=== PATIENT | female | born 1975 | race Two or more races ===

== ENCOUNTER 2024-07-26 13:24 | Emergency (ER) | payer MEDICAID, SELFPAY ==
[2024-07-26] VITALS (7 sets, daily range): BP systolic 88–140; BP diastolic 58–85; PULSE 76–101; RESP 16–19; TEMP 36.6–36.9; O2SAT 96–100
--- NOTE | 2024-07-26 13:41 | XR_ITS ---
Examination: CT abdomen and pelvis without contrast. Coronal 3-D reconstructions. Sagittal 2-D reconstructions. Date and time of exam:July 26, 2024 1450 hours INDICATIONS: Sudden onset abdominal pain and vomiting today COMPARISON: December 31, 2023 CTDI: vol (mGy): 6.98 DLP: (mGycm): 8 Technique: Axial images of the abdomen have been obtained, 3 mm slice thickness Intravenous contrast material has not been administered. Low dose protocols were performed. One or more of the following dose reduction techniques were used; automated exposure control, adjustment of the mA and/or KV according to patient size, use of iterative reconstruction technique. Findings: Diffuse fatty infiltration throughout the liver Absent gallbladder Spleen not enlarged No pancreatic or adrenal mass No renal or ureteral calculi, no hydronephrosis Normal appendix No bowel obstruction No diverticulitis 16mm left pelvic cyst Contracted urinary bladder with air in the urinary bladder Moderate osteopenia IMPRESSION: Diffuse fatty infiltration throughout the liver No renal or ureteral calculi, no hydronephrosis Normal appendix No bowel obstruction Recommend pelvic sonography to assess 16mm left pelvic cyst
--- NOTE | 2024-07-26 13:45 | PC.NURSE ---
pt here with c/o abd pain and generalized body aches since yesterday, Dr. Abarca in to see pt
--- NOTE | 2024-07-26 13:49 | PD.EDABDPN ---
ED Abdominal Pain RME/HPI General Chief Complaint: Abdominal Pain Stated complaint: ABD PAIN AND BODY PAIN SINCE YESTRDAY Time seen by provider: 07/26/24 13:30 Arrival date/time: 07/26/24 13:24 RME / HPI RME / HPI narrative: 49 year old female with history of hypertension., diabetes, and previous admission for DKA presents to the ED for evaluation of epigastric abdominal pain that radiates to both shoulders beginning yesterday. Described as aching in sensation, rating as moderate. Accompanied by nausea, vomiting, and body aches. Reports pain is aggravated with eating with no known modifying factors. Denies fevers, chills, chest pain, cough, shortness of breath, diarrhea, constipation, or urinary symptoms. Denies any sick contacts with similar GI symptoms. Related Data Home Medications ?Medication ?Instructions ?Recorded ?Confirmed lisinopril 2.5 mg tablet 2.5 mg PO QDAY 01/02/24 01/29/24 ascorbic acid (vitamin C) 500 mg 500 mg PO DAILY 01/29/24 01/29/24 tablet (Vitamin C) bisacodyl 10 mg rectal suppository 10 mg DE Q72H PRN Constipation 01/29/24 01/29/24 (Dulcolax (bisacodyl)) hydrocodone 5 mg-acetaminophen 325 1 tab PO Q6H PRN Breakthrough 01/29/24 01/29/24 mg tablet Pain, Moderate insulin glargine 100 unit/mL (3 25 unit subcut QDAY 01/29/24 01/29/24 mL) subcutaneous pen (Basaglar KwikPen U-100 Insulin) insulin lispro 100 unit/mL See Rx Instructions .Route .COMPLEX 01/29/24 01/29/24 subcutaneous pen (Admelog SoloStar U-100 Insulin lispro) magnesium hydroxide 400 mg/5 mL 30 ml PO Q72H PRN Constipation 01/29/24 01/29/24 oral suspension (Milk of Magnesia) vancomycin 1 gram/200 mL in 0.9 % 1 g IV BID 01/29/24 01/29/24 sod. chloride intravenous piggyback zinc 50 mg tablet 50 mg PO QDAY 01/29/24 01/29/24 Previous Rx's ?Medication ?Instructions ?Recorded insulin lispro 100 unit/mL See Rx Instructions .Route 01/10/20 subcutaneous pen .COMPLEX #15 mL pantoprazole 40 mg tablet,delayed 40 mg PO QDAY #60 tabs 06/24/23 release Allergies Allergy/AdvReac Type Severity Reaction Status Date / Time No Known Allergies Allergy Verified 07/26/24 13:28 Review of Systems Review of Systems Narrative Review of Systems: Gen: No fever, no chills, no weight loss, +body aches EYES: No discharge, no visual changes, no pain HEENT: No ear pain, no congestion, no sore throat PULM: No shortness of breath, no cough, no congestion CV: No chest pain, no dyspnea on exertion, no palpitations GI: +nausea, +vomiting, no diarrhea,+ pain, no constipation : No frequency, no urgency,? no dysuria Musc/skel: No joint pain, +BL shoulder pain Skin: No rash. Neuro: No weakness, no headache Past Medical History Past Medical History CARDIAC: Positive Hypertension GASTROINTESTINAL: Positive Gastrointestinal Disorders and Gastroesophageal Reflux Disease MUSCULOSKELETAL: Positive Musculoskeletal Disorders and Arthritis ENDOCRINE: Positive Endocrine Disorders and Diabetes Mellitus Type 2 HEMATOLOGIC: Positive Blood Disorders and Anemia OTHER HISTORY: Positive Chicken Pox Family History FAMILY HISTORY: Negative Family Psychiatric Problems, Family Respiratory Disorders, Family Cardiac Disorders or Family Gastrointestinal Problems Surgical History SURGICAL: Positive Abdominal Surgery and Hysterectomy Social History SMOKING STATUS: Never smoker SUBSTANCE USE: does not use and unknown ED Exam Narrative Physical exam: GENERAL: In general the patient is awake, interactive, in an emergency department gurney.? HEAD/EYES/EARS/NOSE/THROAT: normo-cephalic, atraumatic, mucus membranes are moist.? No cervical tenderness palpation midline.? Supple neck. CARDIOVASCULAR: regular rate and regular rhythm, no murmurs, heart sounds are not distant, strong pulses in all four extremities that are equal and symmetric bilateral upper and lower extremities, normal capillary refill. CHEST/PULMONARY: normal chest rise and fall, good air movement, clear to auscultation bilaterally, normal inspiratory to expiratory ratios without evidence of respiratory distress. ABDOMEN: soft, epigastric tenderness, no masses appreciated BACK: normal range of motion without pain. NEUROLOGICAL: cranio-facial features are symmetric, moves all four extremities equally without obvious limitations or weakness. EXTREMITY: no tenderness to palpation over the long bones or large joints of the bilateral upper and lower extremities, no joint swelling, no joint erythema, no signs of trauma, no unilateral leg swelling and no peripheral edema. SKIN: warm, dry, well-perfused, no jaundice, no rash, no telangiectasias or petechia. PSYCH: calm, cooperative, no evidence of psychosis or agitation Course Quality Measures none Orders Category Date Time Status EKG (ED ONLY) *Do not use* NOW Care 07/26/24 16:50 Completed Miscellaneous Nursing Order X1 Care 07/26/24 16:[address] abdomen pelvis wo con Stat Exams 07/26/24 13:41 Completed EKG (ED Only) Stat Exams 07/26/24 16:50 Draft CBC Stat Lab 07/26/24 13:55 Completed CMP [Comprehensive Metabolic Panel] Stat Lab 07/26/24 13:55 Completed HCG Qualitative,Urine Stat Lab 07/26/24 13:41 Ordered Lipase Stat Lab 07/26/24 13:55 Completed Troponin I Stat Lab 07/26/24 16:35 Ordered UA [Urinalysis] Stat Lab 07/26/24 13:41 Ordered Urine Culture Stat Lab 07/26/24 13:41 Ordered Lidocaine 2% Viscous [Xylocaine 2% Viscous] Med 07/26/24 16:31 Discontinued 15 ml PO X1 ONE Morphine Inj Med 07/26/24 16:37 Discontinued 4 mg IVP X1 ONE Ondansetron Inj [Zofran Inj] Med 07/26/24 16:37 Discontinued 4 mg IV X1 ONE Ondansetron Inj [Zofran Inj] Med 07/26/24 16:49 Discontinued 4 mg IV X1 ONE Ondansetron Odt [Zofran Odt] Med 07/26/24 13:41 Discontinued 4 mg PO X1 ONE Sodium Chloride 0.9% 1000 ml [Ns] 1,000 ml Med 07/26/24 16:36 Discontinued IV 999 mls/hr mg Hyd/Al Hyd/Zamzam Susp [Maalox Susp] Med 07/26/24 13:41 Discontinued 30 ml PO X1 ONE mg Hyd/Al Hyd/Zamzam Susp [Maalox Susp] Med 07/26/24 16:31 Discontinued 30 ml PO X1 ONE Reevaluation(s) Reevaluation #1: Patient is still complaining of nausea and pain. Will add on labs and GB ultrasound. Time: 16:35 Vital Signs Vital signs: Vital Signs Temperature 98.5 F 07/26/24 13:36 Pulse Rate 100 07/26/24 13:36 Respiratory Rate 18 03/17/25 13:36 Blood Pressure 88/62 L 07/26/24 13:36 Pulse Oximetry (%) 96 07/26/24 13:36 Oxygen Delivery Method Room Air 07/26/24 13:36 Pulse ox is 96% on room air which is adequate. Abdominal Pain MDM MDM Narrative MDM Narrative:: Teresa Bhtaia, am scribing for and in the presence of Dr. Cotton. 49-year-old female with history of diabetes, gastritis, hypertension, status post cholecystectomy in the past who is coming into the emergency department for mid to epigastric abdominal pain that has been constant since yesterday. The patient's had decreased oral intake. She denies fevers, cough, or radiation to her back. No chest pain or shortness of breath. Patient states she has had pain similar to this in the past after she has been eating spicy foods. No dizziness or syncope. Positive nausea. While in the emergency department it is noted on arrival that she is 88/62 and immediately placed into a bed. Pulse is 100 and afebrile at 98.5. LABS: Labs reviewed and interpreted by me. White count is normal at 6.2. H&H is stable at 11/33. Platelets normal at 223. Liver function test show bilirubin at 1.5 which is increased and abnormal from her previous at 0.6. Alk phos is 181(slightly increased from 177). Lipase is normal at 26. CT abdomen pelvis without contrast: No acute abdomen and fatty liver. EDC: Patient treated with GI cocktail and not improved in her pain. Differential diagnosis includes, bile duct stone, worsening gastritis, non-STEMI, other coronary artery disease, pancreatitis. There is no evidence of DKA and her CO2 is 25. Anion gap is 11. I do not believe that this patient is anything close to DKA. Glucose slightly elevated at 266. 1700: CT scan also shows that she has a very small ovarian cyst and she is not having any bilateral lower abdominal cramping or pain so I do not think she needs a pelvic ultrasound today. -Pain control patient will be treated with morphine and/or Toradol -Gallbladder ultrasound to look for enlarged common bile duct -IV fluids to treat for dehydration since the patient has not eaten since yesterday. -Repeat [id number] glucose after 1 L of fluid. -Follow-up labs urinalysis. 1800: Patient signed out to Dr. Almazan pending troponin, UA, GB ultrasound, and pain control. Patient data External records reviewed:: [facility] previous records (I reviewed admission from 01/29/2024 through 02/03/2024) Clinical information provided by:: patient Social determinants that could affect healthcare access:: none Patient has the following chronic illnesses:: HTN, DM, previous admission for DKA How is presenting disease/condition affected by chronic disease/condition?: exacerbated by Evaluation data The following diagnostics were reviewed and interpreted by me:: lab results, radiology exam(s) and EKG tracing(s) (Sinus rhythm, rate 84, no ST elevation or depression, no STEMI, normal DE interval. ) Lab and/or radiology exams considered but not ordered:: None Interpretation Summary: Ordering Physician: Fredis Hewitt Date of Service: 07/26/24 Procedure(s): CT abdomen pelvis wo con Accession Number(s): [id number] cc: Fredis Hewitt; Karl Rodríguez MD~ Examination: CT abdomen and pelvis without contrast. Coronal 3-D reconstructions. Sagittal 2-D reconstructions. Date and time of exam:July 26, 2024 1450 hours INDICATIONS: Sudden onset abdominal pain and vomiting today COMPARISON: December 31, 2023 CTDI: vol (mGy): 6.98 DLP: (mGycm): 8 Technique: Axial images of the abdomen have been obtained, 3 mm slice thickness Intravenous contrast material has not been administered. Low dose protocols were performed. One or more of the following dose reduction techniques were used; automated exposure control, adjustment of the mA and/or KV according to patient size, use of iterative reconstruction technique. Findings: Diffuse fatty infiltration throughout the liver Absent gallbladder Spleen not enlarged No pancreatic or adrenal mass No renal or ureteral calculi, no hydronephrosis Normal appendix No bowel obstruction No diverticulitis 16mm left pelvic cyst Contracted urinary bladder with air in the urinary bladder Moderate osteopenia IMPRESSION: Diffuse fatty infiltration throughout the liver No renal or ureteral calculi, no hydronephrosis Normal appendix No bowel obstruction Recommend pelvic sonography to assess 16mm left pelvic cyst Dictated By: Karl Rodríguez MD Signed By: <Electronically signed by Karl Rodríguez MD in OV> 07/26/24 1534 Medications / Prescriptions Medications or Prescriptions considered but not ordered:: None Medication administrations:: Medication Administration History Discontinued Medications Al Hydrox/Mg Hydrox/Simethicone (Mg Hyd/Al Hyd/Zamzam (Maalox Reg) Susp 30 Ml Udc) 30 ml PO X1 ONE Stop: 07/26/24 13:42 Last Admin: 07/26/24 14:44 Dose: 30 ml Documented By: [facility] Al Hydrox/Mg Hydrox/Simethicone (Mg Hyd/Al Hyd/Zamzam (Maalox Reg) Susp 30 Ml Udc) 30 ml PO X1 ONE Stop: 07/26/24 16:32 Last Admin: 07/26/24 16:51 Dose: Not Given Documented By: [facility] Non-Admin Reason: Cancelled by Provider Sodium Chloride (Ns) 1,000 mls @ 999 mls/hr IV .Q1H1M ONE Stop: 07/26/24 17:36 Last Admin: 07/26/24 17:00 Dose: 999 mls/hr Documented By: [facility] Lidocaine HCl (Lidocaine Viscous 2% 15 Ml Udc) 15 ml PO X1 ONE Stop: 07/26/24 16:32 Last Admin: 07/26/24 16:51 Dose: Not Given Documented By: [facility] Non-Admin Reason: Cancelled by Provider Morphine Sulfate (Morphine Sulf Inj 10 Mg/Ml Vial) 4 mg IVP X1 ONE Stop: 07/26/24 16:38 Last Admin: 07/26/24 17:03 Dose: 4 mg Documented By: LIA Ondansetron HCl (Ondansetron Odt 4 Mg Tabrap) 4 mg PO X1 ONE; Protocol Stop: 07/26/24 13:42 Last Admin: 07/26/24 14:43 Dose: 4 mg Documented By: [facility] Ondansetron HCl (Ondansetron Inj 2 Mg/Ml Inj 2 Ml) 4 mg IV X1 ONE; Protocol Stop: 07/26/24 16:38 Last Admin: 07/26/24 16:50 Dose: Not Given Documented By: KD Non-Admin Reason: Duplicate Medication on eMAR Ondansetron HCl (Ondansetron Inj 2 Mg/Ml Inj 2 Ml) 4 mg IV X1 ONE; Protocol Stop: 07/26/24 16:50 Last Admin: 07/26/24 17:01 Dose: 4 mg Documented By: KDC See above Consultations Consultation(s) initiated? (list below): No Diagnosis Differential diagnosis abdominal pain: abdominal pain, acute appendicitis, calculus of kidney, constipation, diverticulitis, endometriosis, gastroenteritis and pancreatitis Most likely diagnosis given after review of the tests above:: Abdominal pain Admission Indicated Admission indicated?: not indicated Explain why admission is indicated or not indicated:: 1800: Patient signed out to Dr. Almazan pending troponin, UA, GB ultrasound, and pain control. Admission Request Was there a request for admission?: No Disposition Plan Disposition Plan: other (specify) (Signed out to Dr. Almazan ) Discharge Plan Prescriptions/Referrals Prescriptions/Med Rec: No Action insulin lispro 100 unit/mL insulin pen See Rx Instructions .ROUTE .COMPLEX Qty: 15 0RF Rx Instructions: Please provide with corresponding needles and caps. Administer 3 times daily before meals and at bedtime per light sliding scale. pantoprazole 40 mg tablet,delayed release (DR/EC) 40 mg PO QDAY Qty: 60 0RF lisinopril 2.5 mg Tablet 2.5 mg PO QDAY Rx Instructions: hold for SBP<110, DBP< 60 insulin lispro [Admelog SoloStar U-100 Insulin] 100 unit/mL insulin pen See Rx Instructions .ROUTE .COMPLEX Protocol: Age Greater than 75 Protocol Text: Age less than 75 years, to be administred with initial in subcutaneous dose Rx Instructions: achs per insulin glargine [Basaglar KwikPen U-100 Insulin] 100 unit/mL (3 mL) insulin pen 25 unit SC QDAY Rx Instructions: Hold if B/S is <100 hydrocodone-acetaminophen 5-325 mg Tablet 1 tab PO Q6H PRN (Reason: Breakthrough Pain, Moderate) magnesium hydroxide [Milk of Magnesia] 400 mg/5 mL Suspension 30 ml PO Q72H PRN (Reason: Constipation) ascorbic acid (vitamin C) [Vitamin C] 500 mg Tablet 500 mg PO DAILY bisacodyl [Dulcolax (bisacodyl)] 10 mg Suppository 10 mg DE Q72H PRN (Reason: Constipation) zinc 50 mg Tablet 50 mg PO QDAY vancomycin in 0.9 % sodium chl 1 gram/200 mL Piggyback 1 g IV BID Referrals: Alexander Aldana MD [Primary Care Provider] - In 1 week Problem List Clinical Impression: Abdominal pain Patient/Caregiver Discharge Instructions Print Language: [place]
[2024-07-26 14:16] LABS: Basophils % (Auto) 0 % (0-2.5); Eosinophils % (Auto) 0 % (0-10); Hematocrit 33.4 % (36.0-46.0); Hemoglobin 11.4 g/dL (12.0-16.0); Immature Granulocytes % (Auto) 0 % (0-0); Immature Granulocytes Auto 0.02 Thou/mm3 (0.00-0.00); Lymphocytes # (Auto) 1.4 Thou/mm3 (1.0-4.8); Lymphocytes % (Auto) 23 % (10-50); Mean Corpuscular HGB Conc 34.1 g/dl (31.0-37.0); Mean Corpuscular Hemoglobin 27.1 pg (25.0-35.0); Mean Corpuscular Volume 80 fL (80-100); Monocytes # (Auto) 0.3 Thou/mm3 (0.0-0.8); Monocytes % (Auto) 5 % (0-12); Neutrophils # (Auto) 4.4 Thou/mm3 (1.8-7.7); Neutrophils % (Auto) 71 % (37-80); Nucleated Red Blood Cell % 0 /100 WBC (0); Platelet Count 223 Thou/mm3 (140-440); RDW Standard Deviation 37.7 fL (36.4-46.3); White Blood Count 6.2 Thou/mm3 (3.6-11.0)
[2024-07-26 14:43] LABS: Alanine Aminotransferase 45 U/L (10-49); Albumin, Serum 4.3 gm/dL (3.5-5.0); Alkaline Phosphatase 181 U/L (46-116); Anion Gap 11 (7-16); Aspartate Amino Transferase 26 U/L (0-34); BUN/Creatinine Ratio 21 Ratio (12-20); Bilirubin,Total 1.5 mg/dL (0.3-1.2); Blood Urea Nitrogen 21 mg/dL (9-23); Calcium 9.4 mg/dL (8.3-10.6); Calcium (Corrected) 9.4 mg/dL (8.5-10.1); Carbon Dioxide 25.2 mMol/L (20.0-31.0); Chloride 99 mMol/L (98-107); Globulin 4.1 gm/dL (2.3-3.5); Glucose 266 mg/dL (74-106); Lipase 26 U/L (12-53); Osmolality,Calculated 282 (275-295); Potassium 3.8 mMol/L (3.4-5.1); Sodium 135 mMol/L (136-145); Total Protein 8.4 gm/dL (5.7-8.2); eGFR > 60 See Note
[2024-07-26] MEDS: ONDANSETRON ODT 4 MG TABRAP PO (14:43)
[2024-07-26] MEDS: MG HYD/AL HYD/SIME (Maalox Reg) SUSP 30 ML UDC PO (14:44)
--- NOTE | 2024-07-26 16:50 | EKG_ITS ---
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
[2024-07-26] MEDS: SODIUM CHLORIDE 0.9% 1000 ML 1,000 ML 999 ML IV (17:00)
[2024-07-26] MEDS: ONDANSETRON INJ 2 MG/ML INJ 2 ML 4 MG IV (17:01)
[2024-07-26] MEDS: MORPHINE SULF INJ 10 MG/ML VIAL 4 MG IVP (17:03)
--- NOTE | 2024-07-26 17:36 | XR_ITS ---
Examination: Abdomen sonogram, Limited Date and time of exam: July 26, 2024 1955 hrs. Indications: Epigastric pain nausea vomiting beginning 2 days ago Technique: Real-time lopez scale transabdominal sonographic images of the upper abdomen obtained. Findings: Absent gallbladder Normal common bile duct 0.5 cm Pancreatic head 2.0 cm Liver 14.2 cm fatty infiltration no focal liver lesions Normal hepatopedal portal venous flow Patent IVC Impression: Normal common bile duct Fatty liver
[2024-07-26 17:56] LABS: Troponin I < 0.002 ng/mL (0.0-0.045)
--- NOTE | 2024-07-26 18:22 | PD.EDADDENDU ---
Emergency Room Addendum Addendum Narrative: [address] Britt. Past medical, surgical, social and family history reviewed. Vitals and home medications reviewed. Results and treatment plan discussed. I will assume the care of the patient at this time and will follow the patient, pending troponin, UA, GB ultrasound, and pain control. Please refer to the emergency department record for history and examination from initial visit. The following addendum documentation note is intended to reflect any pending information, findings, or radiology results not included in the patient?s initial chart. 1944 The patient was re-evaluated and seen by me. She reports that her abdominal pain began yesterday and is now resolved. She denies diarrhea but continues to report episodes of nausea and vomiting. On physical examination, the abdomen is soft, non-tender, and without tenderness even on deep palpation. She denies any current pain and has no additional medical complaints at this time. The patient notes a history of hernia and states that this pain is similar to an episode she experienced approximately one year ago, which resolved spontaneously without medical intervention. 2044 Radiology results have been reviewed by me and are unremarkable. The findings were discussed with the patient, who remains in no acute distress and denies any pain at this time. She reports that her nausea has resolved and that she feels normal. A repeat abdominal examination was performed, revealing no tenderness whatsoever, even on deep palpation. The patient is agreeable to the discharge plan and demonstrates understanding of follow-up instructions. MD Attestation MD Attestation Scribe Attestation: I, Evens Grigsby, am scribing for and in the presence of Dr. Almazan. Provider Notation: Although this document has been carefully reviewed, there may still be some phonetic and other typographical errors. These errors are purely grammatical due to imperfections in the software program and should not be construed in any way to compromise the substance of the patient's medical care during this visit.
[2024-07-26 19:13] LABS: Troponin I < 0.002 ng/mL (0.0-0.045)
--- NOTE | 2024-07-26 19:48 | XR_ITS ---
Examination: Pelvic ultrasound, transabdominal, complete Technique: Transabdominal ultrasound of the pelvis performed using grayscale imaging Date and time of exam: July 26, 20241999 hrs. Indications: CT pelvis today small left pelvic cystic mass Findings: Uterus is obscured by bowel gas as well as right ovary Left ovary 3.8 x 3.0 x 3.0 cm arterial flow 2.2 x 1.7 x 1.7 cm simple left ovarian cyst Impression: Left ovarian simple cyst 2.2 x 1.7 x 1.7 cm
[2024-07-26 20:09] LABS: Collection Type, Urine Clean Catch
[2024-07-26 20:16] LABS: Bacteria,Urine 3+; Bilirubin,Urine Negative (Negative); Blood,Urine Negative (Negative); Clarity,Urine Turbid (Clear/Hazy); Color,Urine Yellow (Lt Yel-Yel); Glucose, Urine Negative (Negative); Hyaline Casts,Urine 1 /hpf (0-1); Ketones,Urine Trace (Negative); Leukocyte Esterase,Urine Positive (Negative); Nitrite,Urine Negative (Negative); Protein,Urine 1+ (Neg - Trace); RBC,Urine 4 /hpf (0-3); Specific Gravity,Urine 1.018 (1.001-1.035); Squamous Epithelial Cell,Urine 2 /hpf (0-5); Urobilinogen,Urine Negative mg/dL (0.0-1.0); WBC,Urine 52 /hpf (0-5)
[2024-07-26 20:17] LABS: HCG Qualitative,Urine Negative
== END 2024-07-26 21:02 | disposition home or self-care (01) ==
PROVIDERS: Emergency Medicine; Nurse Practitioner Family; Emergency Provider Emergency Medicine; PCP Family Medicine
DX: K76.0 Fatty (change of) liver, not elsewhere classified (principal); N83.292 Other ovarian cyst, left side; I10 Essential (primary) hypertension; R10.13 Epigastric pain
CPT/HCPCS: 36415; 74176; 76705; 76856; 80053; 81001; 81025; 83690; 84484; 85025; 87077; 87086; 87186; 87400; 87811; 93005; 96361; 96374; 96375; 99284; J2270; J2405; J7030; Q0162; A9270

== ENCOUNTER → 2024-12-17 | Outpatient (CLI) | payer MEDICAID, SELFPAY ==
--- NOTE | 2024-12-17 11:15 | XR_ITS ---
Examination: Screening digital mammography, bilateral Computer aided detection 3-D breast Tomosynthesis, bilateral Date and time of exam: December 27, 2024 1118 hours Indication: Screening Technique: Nonmagnified MLO, CC views of the breasts to been obtained, reconstructed from 3-D Tomosynthesis images. R2 computer aided detection program utilized for evaluation of suspicious masses and/or abnormal calcifications. 3-D Tomosynthesis images obtained. Findings: The breasts are heterogeneously dense, which may obscure small masses Benign calcifications. 16 mm focal asymmetry 12:00 position left breast Impression: BI-RADS Category 0: Incomplete: Need additional imaging evaluation Recommend follow-up spot tomographic views of 16 mm focal asymmetry 12:00 position left breast as well as bilateral breast sonography to complete the workup
== END | disposition home or self-care (01) ==
PROVIDERS: PCP Physician Assistant; Referring Provider Physician Assistant; Visit Provider Physician Assistant
DX: Z12.31 Encounter for screening mammogram for malignant neoplasm of breast (principal); N64.89 Other specified disorders of breast
CPT/HCPCS: 77063; 77067

== ENCOUNTER → 2025-03-08 | Outpatient (CLI) | payer MEDICAID, SELFPAY ==
--- NOTE | 2025-03-08 15:30 | XR_ITS ---
Examination: Arterial duplex lower extremity study. Date and time of exam: March 08, 2025, 1534 hours INDICATION: Bilateral lower leg pain beginning 2 months ago, diagnosis peripheral vascular disease lower extremities Findings: Duplex sonographic imaging of the lower extremity arteries using B-mode/Rose scale imaging and Doppler spectral analysis and color flow. Ankle brachial indices have been recorded. Right common femoral artery demonstrates triphasic flow. Right superficial femoral artery demonstrates triphasic flow. Right popliteal artery demonstrates triphasic flow. Right posterior tibial artery demonstrated triphasic flow. Right ankle/brachial index is 1.2. Left common femoral artery demonstrates triphasic flow. Left superficial femoral artery demonstrates triphasic flow. Left popliteal artery demonstrates triphasic flow. Left posterior tibial artery demonstrated triphasic flow. Left ankle/brachial index is 1.3. Impression: No significant obstructive arterial disease
== END | disposition home or self-care (01) ==
PROVIDERS: PCP Physician Assistant; Referring Provider Physician Assistant; Visit Provider Physician Assistant
DX: I73.9 Peripheral vascular disease, unspecified (principal)
CPT/HCPCS: 93925

== ENCOUNTER 2025-04-02 20:57 | Emergency (ER) | payer MEDICAID, SELFPAY ==
[2025-04-02 21:02] VITALS: BP 98/65; PULSE 97; RESP 19; TEMP 36.8; O2SAT 99
--- NOTE | 2025-04-02 21:12 | XR_ITS ---
Examination: CT soft tissue neck, without contrast. 2-D sagittal reconstructions. 2-D coronal reconstructions. 3-D reconstructions. Date and time of exam: April 02, 2025, 2141 hours INDICATIONS: Throat pain fever chills headache today CTDI: vol (mGy): 12.52 DLP: (mGycm): 331 Technique: Multiple 1.25 mm axial sections of the soft tissue neck without intravenous contrast have been obtained. 2-D sagittal and coronal reconstructions have been obtained. 3-D reconstructions have been obtained. Low dose protocols were performed. One or more of the following dose reduction techniques were used; automated exposure control, adjustment of the mA and/or KV according to patient size, use of iterative reconstruction technique. Findings: Significant right maxillary opacification Symmetrical nasopharynx oropharynx No tonsillar abscess Supraglottic region unremarkable The larynx appears normal Symmetrical thyroid lobes Normal epiglottis No prevertebral soft tissue prominence Satisfactory alignment cervical vertebral bodies Symmetrical parotid glands IMPRESSION: No soft tissue neck mass No tonsillar abscess Normal larynx Normal epiglottis No prevertebral soft tissue prominence If symptoms persist, recommend repeating this study with intravenous contrast
[2025-04-02 22:32] LABS: Strep A Rapid Negative (Negative)
[2025-04-02 23:18] LABS: Collection Type, Urine Voided
[2025-04-02 23:21] LABS: Mono Screen Positive (Negative)
[2025-04-02 23:36] LABS: Bacteria,Urine 1+; Bilirubin,Urine Negative (Negative); Blood,Urine Negative (Negative); Clarity,Urine Clear (Clear/Hazy); Color,Urine Lt-Yellow (Lt Yel-Yel); Glucose, Urine 4+ (Negative); Ketones,Urine Trace (Negative); Leukocyte Esterase,Urine Positive (Negative); Nitrite,Urine Negative (Negative); PH,Urine 6.0 (5.0-7.0); Protein,Urine Trace (Neg - Trace); RBC,Urine 3 /hpf (0-3); Specific Gravity,Urine 1.024 (1.001-1.035); Squamous Epithelial Cell,Urine 2 /hpf (0-5); Urobilinogen,Urine Negative mg/dL (0.0-1.0); WBC,Urine 70 /hpf (0-5)
[2025-04-02 23:38] LABS: HCG Qualitative,Urine Negative
--- NOTE | 2025-04-02 23:45 | EDNOTE_ITS ---
ED Fever RME/HPI General Chief Complaint: Flu Like Symptoms Stated Complaint: FEVER, CHILL, HEADACHE, BACK PAIN Time Seen by Provider: 04/02/25 21:08 Arrival date/time: 04/02/25 20:57 This is a case of 49-year-old female with no medical history came in in the emergency room due to on and off fever for 3 days associated with chills frontal headache and lower back pain patient denies any abdominal pain nausea vomiting constipation diarrhea denies any cough nasal congestion or ear pain no drooling of saliva no hoarseness of voice persistence of the symptoms this patient decided to start consult here in the emergency room Limitations: no limitations Related Data Home Medications ?Medication ?Instructions ?Recorded ?Confirmed lisinopril 2.5 mg tablet 2.5 mg PO QDAY 01/02/2401/10 ascorbic acid (vitamin C) 500 mg 500 mg PO DAILY 01/2801/29/24 tablet (Vitamin C) bisacodyl 10 mg rectal suppository 10 mg NH Q72H PRN C onstipation 01/29/24 01/29/24 (Dulcolax (bisacodyl)) hydrocodone 5 mg-acetaminophen 325 1 tab PO Q6H PRN Br eakthrough 01/29/24 01/29/24 mg tablet Pain, Moderate insulin glargine 100 unit/mL (3 25 unit subcut QDAY 01/29/24 mL) subcutaneous pen (Basaglar KwikPen U-100 Insulin) insulin lispro 100 unit/mL See Rx Instructions .Route .COMPLEX 01/29/24 01/29/24 subcutaneous pen (Admelog SoloStar U-100 Insulin lispro) magnesium hydroxide 400 mg/5 mL 30 ml PO Q72H PRN Cons tipation 01/29/24 01/29/24 oral suspension (Milk of Magnesia) vancomycin 1 gram/200 mL in 0.9 % 1 g IV BID 01/29/24 01/29/24 sod. chloride intravenous piggyback zinc 50 mg tablet 50 mg PO QDAY 01/29/2401/28 Previous Rx's ?Medication ?Instructions ?Recorded insulin lispro 100 unit/mL See Rx Instructions .Route 01/10/20 subcutaneous pen .COMPLEX #15 mL pantoprazole 40 mg tablet,delayed 40 mg PO QDAY #60 ta bs 06/24/23 release ondansetron 4 mg disintegrating 4 mg PO Q6H PRN nausea and 07/26/24 tablet vomiting #14 tabs amoxicillin 875 mg-potassium 1 tab PO BID #20 tabs clavulanate 125 mg tablet baclofen 10 mg tablet 10 mg PO BID PRN muscle spas m #10 04/02/25 tabs ibuprofen 800 mg tablet 800 mg PO Q8H PRN pain #20 t abs 04/02/25 lidocaine HCl 2 % mucosal solution 10 ml PO Q4HR PRN s ore throat #100 04/02/25 (Lidocaine Viscous) mL Allergies Allergy/AdvReac Type Severity Reaction Status Date / Time No Known Allergies Allergy Verified 04/02/25 20:58 Review of Systems Review of Systems Systems Reviewed: All systems reviewed, normal except as documented Constitutional Constitutional: Reports system reviewed and no additional complaints, except as documented and Reports as per HPI ENT Ears, Nose, Mouth, and Throat: Reports system reviewed and no additional complaints, except as documented and Reports as per HPI Cardiovascular Cardiovascular: Reports system reviewed and no additional complaints, except as documented and Reports as per HPI Respiratory Respiratory: Reports system reviewed and no additional complaints, except as documented and Reports as per HPI Gastrointestinal Gastrointestinal: Reports system reviewed and no additional complaints, except as documented and Reports as per HPI Musculoskeletal Musculoskeletal: Reports system reviewed and no additional complaints, except as documented and Reports as per HPI Neurologic Neurologic: Reports system reviewed and no additional complaints, except as documented and Reports as per HPI Past Medical History Past Medical History NEUROLOGIC: Negative Neurological Disorders or Seizures CARDIAC: Positive Hypertension; Negative Cardiac Disorders or Congestive Heart Failure RESPIRATORY: Negative Chronic Obstructive Pulmonary Disease (COPD) or Asthma GASTROINTESTINAL: Positive Gastrointestinal Disorders and Gastroesophageal Reflux Disease GENITOURINARY: Negative Renal Disease REPRODUCTIVE: Negative Pelvic Inflammatory Disease MUSCULOSKELETAL: Positive Musculoskeletal Disorders and Arthritis ENDOCRINE: Positive Endocrine Disorders and Diabetes Mellitus Type 2; Negative Diabetes Mellitus Type 1 HEMATOLOGIC: Positive Blood Disorders and Anemia; Negative Sickle Cell Disease OTHER HISTORY: Positive Chicken Pox; Negative Autoimmune Disease, Blood Transfusions, Blood Transfusion Reaction, Anesthesia Reactions, Organ Transplant, MRSA, VRSA, Vancomycin-Resistant Enterococci, Clostridium Difficile or Cancer Family History FAMILY HISTORY: Negative Family Psychiatric Problems, Family Respiratory Disorders, Family Cardiac Disorders or Family Gastrointestinal Problems Surgical History SURGICAL: Positive Abdominal Surgery and Hysterectomy; Negative Cardiac Surgery, Endocrine Surgery, Thyroidectomy, Ear Surgery, Nephrectomy, Joint Replacement, Neurologic Surgery or Organ Transplant Social History SMOKING STATUS: Never smoker SUBSTANCE USE: does not use and unknown Physical Exam General Limitations: no limitations General appearance: alert, in no apparent distress and other (Patient is awake alert oriented not in distress nontoxic looking well-hydrated well-nourished) Head Head exam: atraumatic, normocephalic and normal inspection Eye Eye exam: Present normal appearance, PERRL and EOMI ENT ENT exam: Present normal exam, normal oropharynx, mucous membranes moist and other Neck Neck exam: Present normal inspection, full ROM, trachea midline and other; Absent tenderness, meningismus, lymphadenopathy or thyromegaly Chest Chest inspection: Present normal inspection and symmetric chest wall rise; Absent tenderness Respiratory Respiratory exam: Present normal lung sounds bilaterally; Absent respiratory distress, wheezes, stridor, accessory muscle use or prolonged expiratory phase Cardiovascular Cardiovascular exam: Present regular rate, normal rhythm and normal heart sounds; Absent bradycardia, tachycardia, irregular rhythm, systolic murmur or diastolic murmur Abdominal Exam Abdominal exam: Present soft and normal bowel sounds; Absent distention, tenderness, guarding, rebound, rigidity, diminished bowel sounds, hyperactive bowel sounds, hypoactive bowel sounds, organomegaly, obturator sign, Flores's sign, Rovsing's sign, tenderness at McBurney's Point or hernia Extremities Exam Extremities exam: Present normal inspection and full ROM Back Exam Back exam: Present normal inspection and full ROM; Absent tenderness, CVA tenderness (R), CVA tenderness (L), muscle spasm, paraspinal tenderness, vertebral tenderness, rashes, sciatic notch tenderness (R), sciatic notch tenderness (L), straight leg raise (R) or straight leg raise (L) Neurological Exam Neurological exam: Present alert, oriented X3, CN II-XII intact, normal gait and reflexes normal; Absent motor sensory deficit Psychiatric Psychiatric exam: Present normal affect and normal mood Skin Skin exam: Present warm, dry, intact, normal color and other (Excellent skin turgor) ED Exam General Limitations: Present no limitations General appearance: Present alert, in no apparent distress and other (Patient is awake alert oriented not in distress nontoxic looking well-hydrated well- nourished) Head Head exam: Present atraumatic, normocephalic and normal inspection Eye Eye exam: Present normal appearance, PERRL and EOMI ENT ENT exam: Present normal exam, normal oropharynx, mucous membranes moist and other Neck Neck exam: Present normal inspection, full ROM, trachea midline and other; Absent tenderness, meningismus, lymphadenopathy or thyromegaly Chest Chest inspection: Present normal inspection and symmetric chest wall rise; Absent tenderness Respiratory Respiratory exam: Present normal lung sounds bilaterally; Absent respiratory distress, wheezes, stridor, accessory muscle use or prolonged expiratory phase Cardiovascular Cardiovascular exam: Present regular rate, normal rhythm and normal heart sounds; Absent bradycardia, tachycardia, irregular rhythm, systolic murmur or diastolic murmur Abdominal Exam Abdominal exam: Present soft and normal bowel sounds; Absent distention, tenderness, guarding, rebound, rigidity, diminished bowel sounds, hyperactive bowel sounds, hypoactive bowel sounds, organomegaly, obturator sign, Flores's sign, Rovsing's sign, tenderness at McBurney's Point or hernia Extremities Exam Extremities exam: Present normal inspection and full ROM Back Exam Back exam: Present normal inspection and full ROM; Absent tenderness, CVA tenderness (R), CVA tenderness (L), muscle spasm, paraspinal tenderness, vertebral tenderness, rashes, sciatic notch tenderness (R), sciatic notch tenderness (L), straight leg raise (R) or straight leg raise (L) Neurological Exam Neurological exam: Present alert, oriented X3, CN II-XII intact, normal gait and reflexes normal; Absent motor sensory deficit Psychiatric Psychiatric exam: Present normal affect and normal mood Skin Skin exam: Present warm, dry, intact, normal color and other (Excellent skin turgor) Course Quality Measures none Orders Category Date Time Status Bedside COVID-19 Antigen Test NOW Care 04/02/25 22:[address] soft tissue neck wo con Stat Exams 04/02/25 21:12 Completed HCG Qualitative,Urine Stat Lab 04/02/25 22:08 Completed [place] Screen Stat Lab 04/02/25 22:05 Completed Strep A Rapid Stat Lab 04/02/25 21:29 Completed Urinalysis Stat Lab 04/02/25 22:08 Completed Vital Signs Vital signs: Vital Signs Temperature 98.2 F 04/02/25 21:02 Pulse Rate 97 04/02/25 21:02 Respiratory Rate 19 04/02/25 21:02 Blood Pressure 98/65 04/02/25 21:02 Pulse Oximetry (%) 99 04/02/25 21:02 Oxygen Delivery Method Room Air 04/02/25 21:02 Oxygen saturation is 99% in room air Fever MDM Narrative MDM Narrative:: This is a case of 49-year-old female with no medical history came in in the emergency room due to on and off fever for 3 days associated with chills frontal headache and lower back pain patient denies any abdominal pain nausea vomiting constipation diarrhea denies any cough nasal congestion or ear pain no drooling of saliva no hoarseness of voice persistence of the symptoms this patient decided to start consult here in the emergency room physical examination patient is awake alert oriented not in distress nontoxic looking well-hydrated well- nourished vital signs stable BP stable not tachycardic not tachypneic afebrile and nonhypoxic patient HEENT noted bilateral tonsils were swollen and red with exudate but no drooling of saliva no hoarseness of voice no muffled voice no hot potato voice not peritonsillar abscess lungs sound is clear no crackles no rales no retraction no stridor heart normal rate regular rhytthm no murmur abdominal exam is benign nonsurgical no guarding no rebound no rigidity no tenderness no CVA tenderness excellent skin turgor negative for meningeal sign patient is negative for strep throat but positive for mononucleosis patient CT scan of the neck without contrast were normal no peritonsillar abscess patient urinalysis showed WBC in the urine patient is negative also for COVID based on my physical examination and history patient fever is due to acute tonsillitis and urinary tract infection thus patient was discharged with Augmentin patient was also given ibuprofen for pain and fever with baclofen for muscle spasm no signs and symptoms of cauda equina patient will follow-up with PCP in 2 days for reevaluation and for any worsening symptoms or any emergent concern return precaution in the ER is advised Patient was discharged with comfortable condition walking with stable gait. Patient verbalized no further complains explained diagnosis and answered patient question. Patient is comfortable with the proposed management plan including the need to follow up with his/her primary care physician and any specialist if applicable Discussed patient for any urgent condition or worsening sx, He/She needed to go to emergency room immediately or call [phone]. Patient acknowledge the responsibility to follow up as instructed and to monitor her/his symptoms. For any persistence of the symptoms for more than 3-5 days return precaution advised. Discussed the result of the test and was given printed discharge instruction Patient data External records reviewed:: [facility] previous records Clinical information provided by:: patient Social determinants that could affect healthcare access:: none Patient has the following chronic illnesses:: None How is presenting disease/condition affected by chronic disease/condition?: no chronic disease Evaluation data The following diagnostics were reviewed and interpreted by me:: lab results and radiology exam(s) Lab and/or radiology exams considered but not ordered:: Reviewed Interpretation Summary: Reviewed Medications / Prescriptions Medications or Prescriptions considered but not ordered:: Given Medication administrations:: Given Consultations Consultation(s) initiated? (list below): No Diagnosis Fever Differential Diagnosis: fever of unknown origin, community acquired pneumonia and other (Urinary tract infection tonsillitis sinusitis) Most likely diagnosis given after review of the tests above:: Tonsillitis urinary tract infection Admission Indicated Admission indicated?: not indicated Explain why admission is indicated or not indicated:: Not indicated Admission Request Was there a request for admission?: No Disposition Plan Disposition Plan: Discharge Discharge Attestation Discharge Attestation: The patient and all family members were given an opportunity to ask questions and understood the discharge instructions. Discharge instructions specifically effects, indications for sooner follow up or return to the emergency department, and the expected course of current diagnosis. Patient condition: Stable Discharge Plan Plan Patient Disposition: HOME (Self Care) Patient condition on transfer: Stable Prescriptions/Referrals Prescriptions/Med Rec: New amoxicillin-pot clavulanate 875-125 mg tablet 1 tab PO BID Qty: 20 0RF ibuprofen 800 mg tablet 800 mg PO Q8H PRN (Reason: pain) Qty: 20 0RF baclofen 10 mg tablet 10 mg PO BID PRN (Reason: muscle spasm) Qty: 10 0RF lidocaine HCl [Lidocaine Viscous] 2 % solution 10 ml PO Q4HR PRN (Reason: sore throat) Qty: 100 0RF No Action insulin lispro 100 unit/mL insulin pen See Rx Instructions .ROUTE .COMPLEX Qty: 15 0RF Rx Instructions: Please provide with corresponding needles and caps. Administer 3 times daily before meals and at bedtime per light sliding scale. pantoprazole 40 mg tablet,delayed release (DR/EC) 40 mg PO QDAY Qty: 60 0RF lisinopril 2.5 mg Tablet 2.5 mg PO QDAY Rx Instructions: hold for SBP<110, DBP< 60 ondansetron 4 mg tablet,disintegrating 4 mg PO Q6H PRN (Reason: nausea and vomiting) Qty: 14 0RF insulin lispro [Admelog SoloStar U-100 Insulin] 100 unit/mL insulin pen See Rx Instructions .ROUTE .COMPLEX Protocol: Age Greater than 75 Protocol Text: Age less than 75 years, to be administred with initial in subcutaneous dose Rx Instructions: achs per insulin glargine [Basaglar KwikPen U-100 Insulin] 100 unit/mL (3 mL) insulin pen 25 unit SC QDAY Rx Instructions: Hold if B/S is <100 hydrocodone-acetaminophen 5-325 mg Tablet 1 tab PO Q6H PRN (Reason: Breakthrough Pain, Moderate) magnesium hydroxide [Milk of Magnesia] 400 mg/5 mL Suspension 30 ml PO Q72H PRN (Reason: Constipation) ascorbic acid (vitamin C) [Vitamin C] 500 mg Tablet 500 mg PO DAILY bisacodyl [Dulcolax (bisacodyl)] 10 mg Suppository 10 mg NH Q72H PRN (Reason: Constipation) zinc 50 mg Tablet 50 mg PO QDAY vancomycin in 0.9 % sodium chl 1 gram/200 mL Piggyback 1 g IV BID Referrals: Bre Liu PA-C [Primary Care Provider] - In 1 week Problem List Clinical Impression: Fever, Urinary tract infection, Acute tonsillitis, Back muscle spasm, Mononucleosis Patient/Caregiver Discharge Instructions Education Materials: Tonsillitis in Adults, Urinary Tract Infections in Women, ED Back Spasm, No Trauma, ED FUO Adult, ED Mononucleosis Additional Instructions: Follow-up with your primary care physician in 2 days for reevaluation worsening symptoms or any emergent concern call [phone] or go to the nearest emergency room take your medication as directed finish the course of antibiotic increase water intake keep hydrated ice pack and warm compress as needed for back pain Pedialyte Gatorade for hydration warm saline gargle is advised Print Language: Brazilian Stand Alone Forms: [employer] Award Info., Patient Portal Info Letter PA/FLOATING [employer] G[employer] SUPERVISOR Supervising Physician PA/FLOATING [employer] SUPERVISOR Supervising Physician: Dr. Riley Nuñez
[2025-04-02 23:58] VITALS: BP 100/64; PULSE 89; RESP 17; TEMP 37.1; O2SAT 99
[2025-04-02 23:59] VITALS: BMI 23.8
[2025-04-03] MEDS: HYDROcodone/APAP 5/325 TABLET 1 TAB PO (00:13)
== END 2025-04-03 00:16 | disposition home or self-care (01) ==
PROVIDERS: Nurse Practitioner Family; Emergency Provider Emergency Medicine; PCP Physician Assistant
DX: N39.0 Urinary tract infection, site not specified (principal); J03.90 Acute tonsillitis, unspecified; B27.90 Infectious mononucleosis, unspecified without complication; M62.830 Muscle spasm of back
CPT/HCPCS: 36415; 70490; 81001; 81025; 86308; 87635; 87651; 99283; A9270